=== PATIENT | male | born 1980 | race American Indian/Alaskan Native ===

== ENCOUNTER 2019-01-20 07:38 | Outpatient (CLI) | payer OTHER ==
--- NOTE | 2019-01-20 10:17 | XRay Report ---
RIGHT FOREARM HISTORY: Disability exam. COMPARISON: None. TECHNIQUE: 2 views of the right forearm were obtained. FINDINGS: Bones: No fracture or dislocation. Joint spaces: The radiohumeral joint is not well-demonstrated on the AP view but is normal on the lat eral view. The radiocarpal and ulnocarpal joints are not well-demonstrated. Soft tissues: Extensive heterotopic new bone formation at the medial and lateral condyles of the dist al humerus. Additional findings: A single surgical screw in the lateral humeral condyle. IMPRESSION: 1. No acute findings. 2. Postsurgical changes at the elbow and extensive heterotopic new bone formation at the elbow. Signer Name: Tucker Johns MD Signed: 01/20/2019 10:12 AM Workstation Name: [id number]
--- NOTE | 2019-01-20 10:20 | XRay Report ---
RIGHT HUMERUS HISTORY: Disability exam. COMPARISON: None. TECHNIQUE: 2 views of the right humerus were obtained. FINDINGS: Bones: No fracture or dislocation. Joint spaces: Maintained. However, extensive heterotopic new bone formation at the medial and lateral distal condyles of the humerus. There may also be intra-articular loose bodies. Soft tissues: Heterotopic new bone formation. Additional findings: A surgical anchor screw in the lateral condyle of the distal humerus.. IMPRESSION: 1. No acute findings. 2. Postsurgical and probable posttraumatic changes with extensive heterotopic new bone formation and possible loose bodies in the joint at the elbow. Signer Name: Tucker Johns MD Signed: 01/20/2019 10:16 AM Workstation Name: [id number]
== END 2019-01-20 07:39 | disposition home or self-care (01) ==
LOC: XRAY 07:38
PROVIDERS: ATTEND Internal Medicine
DX: Z02.71 Encounter for disability determination (principal); M25.561 Pain in right knee; M25.521 Pain in right elbow

== ENCOUNTER 2019-03-31 08:52 | Outpatient (CLI) | payer OTHER ==
--- NOTE | 2019-03-31 09:58 | XRay Report ---
Right hip 2 views Indication: Right hip pain IMPRESSION: Postoperative change consistent with prior acetabular reconstruction. There is severe het erotopic ossification surrounding the right hip secondary to prior injury. No acute fracture or sublu xation. Signer Name: Freddie Roman MD Signed: 03/31/2019 9:54 AM Workstation Name: [id number]
== END 2019-03-31 08:53 | disposition home or self-care (01) ==
LOC: XRAY 08:52
PROVIDERS: ATTEND Internal Medicine
DX: S79.811A Other specified injuries of right hip, initial encounter (principal); X58.XXXA Exposure to other specified factors, initial encounter; Y93.89 Activity, other specified; Y92.89 Other specified places as the place of occurrence of the external cause; Y99.8 Other external cause status